=== PATIENT | female | born 1960 | race Caucasian/White ===

== ENCOUNTER 2017-10-19 19:17 | Emergency (ER) | payer SELFPAY ==
[2017-10-19 19:27] VITALS: BP 104/59; PULSE 84; RESP 18; TEMP 36.8; O2SAT 98
[2017-10-19 20:41] LABS: Abs Immature Grans 0.01 k/cumm (0.0-0.09); Absolute Basophil Count 0.03 k/cumm (0.0-0.2); Absolute Eosinophil Count 0.26 k/cumm (0.0-0.7); Absolute Lymphocyte Count 1.67 k/cumm (1.2-3.4); Absolute Monocyte Count 0.43 k/cumm (0.11-0.7); Absolute Neutrophil Count 4.32 k/cumm (1.2-6.7); Basophils % 0.4; Eosinophils % 3.9; HCT 39.8 % (36.0-46.0); HGB 13.4 g/dL (12.0-15.5); Immature Grans % 0.1; Lymphocytes % 24.9; Mean Corp. HGB Concentration 33.7 g/dL (32.0-36.0); Mean Corpuscular Hemoglobin 30.9 pg (27.0-33.0); Mean Corpuscular Volume 91.7 fL (80-95); Mean Platelet Volume 10.9 fL (8.0-11.0); Monocytes % 6.4; Neutrophils % 64.3; Platelet Count 223 x1000/uL (130-400); RBC 4.34 m/cumm (4.00-5.20); RBC Distribution Width 13.1 % (11.7-14.6); White Blood Cell Count 6.72 k/cumm (4.4-10.8)
[2017-10-19 20:46] LABS: Bilirubin Negative (Negative); Blood Negative (Negative); Clarity Sl Cloudy; Glucose Negative (Negative); Ketones Negative (Negative); Leukocyte Esterase Negative (Negative); Nitrite Negative (Negative); Specific Gravity 1.015 (1.005-1.025); Urobilinogen 0.2 EU/dL (Up TO 0.2); pH 7.5 (5-8)
[2017-10-19 20:47] LABS: Anion Gap 2.2 mmol/L (3-11); BUN 23 mg/dL (7-18); CO2 33.8 mmol/L (21.0-32.0); CREATININE 0.67 mg/dL (0.55-1.02); Calcium 9.3 mg/dL (8.5-10.1); Chloride 103 mmol/L (98-107); Glucose 86 mg/dL (70-100); Potassium 3.9 mmol/L (3.5-5.1); Sodium 139 mmol/L (136-145)
[2017-10-19 20:59] LABS: *AMPHETAMINES SCREEN URINE Negative (Negative); *BARBITURATES SCREEN URINE Negative (Negative); *BENZODIAZEPINES SCREEN URINE Negative (Negative); Cannabinoids THC Negative (Negative); Cocaine Screen,Urine Negative (Negative); METHADONE URINE SCREEN Negative (Negative); OPIATES URINE SCREEN Negative (Negative)
[2017-10-19 21:00] LABS: ETHANOL BLOOD < 3.0 mg/dL (<3)
[2017-10-19 21:00] LABS: Tricyclic Antidepressants Negative (Negative)
--- NOTE | 2017-10-19 22:01 | ED.GENADUL ---
Disposition Clinical Impression: Schizophrenia Disposition: HOME Condition: Stable Instructions: Schizophrenia (ED) Additional Instructions: Follow-up with [facility] as directed. Return to the emergency department with any worsening or new concerning symptoms. Medical Decision Making - Lab Data Laboratory Tests 10/19/17 10/19/17 10/19/17 19:40 19:40 20:30 WBC RBC Hgb Hct MCV MCH MCHC RDW Plt Count MPV Immature Gran % Neutrophils % Lymphocytes % Monocytes % Eosinophils % Basophils % Absolute Neutrophils Absolute Lymphocytes Absolute Monocytes Absolute Eosinophils Absolute Basophils Sodium 139 Potassium 3.9 Chloride 103 Carbon Dioxide 33.8 H Anion Gap 2.2 L BUN 23 H Creatinine 0.67 Estimated GFR/1.73 m2 >= 60.00 Glucose 86 Calcium 9.3 Urine Color Yellow Urine Clarity Sl cloudy Urine pH 7.5 Ur Specific [place] 1.015 Urine Protein Negative Urine Ketones Negative Urine Blood Negative Urine Nitrite Negative Urine Bilirubin Negative Urine Urobilinogen 0.2 Ur Leukocyte Esterase Negative Urine Glucose Negative Urine Opiates Screen Negative Urine Methadone Screen Negative Ur Barbiturates Screen Negative Ur Tricyclics Screen Negative Ur Amphetamines Screen Negative U Benzodiazepines Scrn Negative Urine Cocaine Screen Negative Ur THC Screen Negative Ethyl Alcohol < 3.0 10/19/17 20:30 WBC 6.72 RBC 4.34 Hgb 13.4 Hct 39.8 MCV 91.7 MCH 30.9 MCHC 33.7 RDW 13.1 Plt Count 223 MPV 10.9 Immature Gran % 0.1 Neutrophils % 64.3 Lymphocytes % 24.9 Monocytes % 6.4 Eosinophils % 3.9 Basophils % 0.4 Absolute Neutrophils 4.32 Absolute Lymphocytes 1.67 Absolute Monocytes 0.43 Absolute Eosinophils 0.26 Absolute Basophils 0.03 Sodium Potassium Chloride Carbon Dioxide Anion Gap BUN Creatinine Estimated GFR/1.73 m2 Glucose Calcium Urine Color Urine Clarity Urine pH Ur Specific [place] Urine Protein Urine Ketones Urine Blood Urine Nitrite Urine Bilirubin Urine Urobilinogen Ur Leukocyte Esterase Urine Glucose Urine Opiates Screen Urine Methadone Screen Ur Barbiturates Screen Ur Tricyclics Screen Ur Amphetamines Screen U Benzodiazepines Scrn Urine Cocaine Screen Ur THC Screen Ethyl Alcohol - Medical Decision Making 57-year-old female who presents with concern for dentist drilling needles into her teeth for monitoring as part of FBI and terrorism. Patient was driven here by a butler friend . Patient admits to dental pain. 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 Patient appears to have chronic dental caries. Her vitals are within normal limits. She appears nontoxic and but has rapid speech. No other acute findings on exam. We will check screening labs. 2099 --patient is medically cleared. Will call mental health. 2199 --discussed with Jaylyn from [facility] who confirms through patient records that this is patient's baseline. Jaylyn discussed with Nirav Pereira at [facility] who is well familiar with patient through [facility] who states that patient has history of schizophrenia and this is her baseline and she had stated these same things to them a couple months ago. Patient again denies suicidal or homicidal ideation. Jaylyn states that patient has refused medication for schizophrenia. She is on Ativan as needed. There is no acute indication for inpatient admission at this time. Plan is for patient to follow-up with [facility] in [place] where she is followed. Pt understands plan and feels good to go home. Instructed to return with any concerns. History of Present Illness - General Chief complaint: PsychEval Stated complaint: PSYCHE EVAL/PT REQUEST Time Seen by Provider: 10/19/17 19:38 Source: patient Mode of arrival: ambulatory Limitations: no limitations - History of Present Illness Initial comments: Patient is a 57-year-old female with history of schizophrenia presents for concern of dentist drilling needles into her teeth for monitoring. She believes the FBI is involved with tourism. She states the dentist are doing this because they are sadistic . Patient denies suicidal ideation, homicidal ideation, or visual or auditory hallucinations. She denies alcohol or drug use. - Related Data LORazepam [Ativan] 0.5 mg PO DAILY PRN 10/19/17 Allergies Allergy/AdvReac Type Severity Reaction Status Date / Time Sulfa (Sulfonamide Allergy Severe Unverified 10/19/17 19:27 Antibiotics) Review of Systems Constitutional: denies: chills, fever Eyes: denies: eye pain ENT: denies: ear pain, dental pain Respiratory: denies: cough, shortness of breath Cardiovascular: denies: chest pain, dyspnea on exertion Gastrointestinal: denies: abdominal pain, nausea, vomiting Genitourinary: denies: urgency, dysuria, frequency Musculoskeletal: denies: back pain Skin: denies: rash, lesions Neurological: denies: headache, weakness, numbness Psychiatric: denies: auditory hallucinations, visual hallucinations, homicidal thoughts, suicidal thoughts Past Medical History - Past Medical History Heart murmur Surgical history: no surgical history Psychiatric history: schizophrenia - Social History Smoking status: never smoker Alcohol use: none Drug use: none General Exam - General Limitations: no limitations General appearance: alert, in no apparent distress - Eye Eye exam: Present: PERRL, EOMI - ENT ENT exam: Present: normal orophraynx, mucous membranes moist - Neck Neck exam: Present: normal inspection - Respiratory Respiratory exam: Present: normal lung sounds bilaterally. Absent: respiratory distress, wheezes, rales, rhonchi, stridor - Cardiovascular Cardiovascular Exam: Present: regular rate, normal rhythm. Absent: bradycardia, tachycardia - GI/Abdominal GI/Abdominal exam: Present: soft, normal bowel sounds. Absent: distended, tenderness, guarding, rebound, rigid - Neurological Exam Neurological exam: Present: alert, oriented X3 - Psychiatric Psychiatric exam: Present: other (rapid speech) - Skin Skin exam: Present: warm, dry, intact Course Vital Signs - 24 hr 10/19/17 19:27 Temperature 98.2 F Pulse 84 Respiratory 18 Rate Blood Pressure 104/59 Pulse Oximetry 98
--- NOTE | 2017-10-19 23:12 | ERMH_ITS ---
Presenting issue: [Dental issues] *How did they arrive here at ER and why did they come: [dropped off by an acquaintance, because she complained of mouth pain] Precipitating Factors: [patient has known diagnosis of schizophrenia] *Assessment of Safety SI / HI- (Address delusions if pertaining to the SI/ HI) [denies. patient states she is being victimized by the dentists who have implanted things in her mouth. She is insisting she have reconstructive dental work. She reports people are breaking in to her apartment . She is delusional but after discussion with [facility] ACCESS CLINICIAN supervisor printing and stamping it is determined this is her baseline and she is not a danger to herself or others. She is not medicated for her illness. ] Disposition: [] *Behavior: [agitated, manic] *Eye Contact: [none] *Mood: [angry] *Affect: [full range] *Appetite: [okay] *Sleep (trouble falling/staying asleep): [] Plan: (please elaborate and include that physician is consulted with plan and/ or placement): [This patient is not a danger to herself or others. She has flight of ideas and delusions and has a known diagnosis of schizophrenia. An [facility] Three Knife Trimmer, Nirav Sarmiento was consulted and this patient is known to him and he reports this is her baseline. She has a history of paranoid delusions and that everyone has robbed her and is out to get her. It is recommended that she return to her apartment unless there is a medical reason to keep her in the hospital. The doctor was advised to discuss this case with the [facility] supervisor printing and stamping reduction plant supervisor for a detailed history. As this patient is not known to this telegraphic typewriter repairer. She will have follow up by the ACCESS CLINICIAN staff at [facility]. ] Provisional Diagnosis:(only if required by physician): [] AXIS 5 Case Handover: Done with ED nurse (name): [] Date & Time [] Huddle: done with ED staff (for boarding clients): [] Yes [x] No Date/Time [] Referral for Case management: Has phone call for introduction been made [] Yes [x] No Referral in EMR: Done and sent? [] Yes [x] NO Clinicians Name and title and Signature: [Jaylyn Garcia, [facility], [facility] Emergency Services Clinician] Make sure that you are photocopying and submitting this to [facility] records dept.to be scanned into chart
== END 2017-10-19 23:35 | disposition home or self-care (01) ==
LOC: ER 12-21 05:03
PROVIDERS: Emergency Provider Physician Assistant
DX: F23 Brief psychotic disorder (principal); R68.84 Jaw pain; M27.0 Developmental disorders of jaws
CPT/HCPCS: 36415; 80048; 80307; 99283; 80320; 81003; 85025